=== PATIENT | male | born 1970 | race Caucasian/White ===

== ENCOUNTER → 2017-05-09 | Outpatient (CLI) | payer OTHER ==
[~2017-05-09] MED LIST: HYDROCODONE BIT1 T11 PO; IBU800 M1 PO; METFORMIN HYDR500 M1 PO; MOTRIN800 MG PO; PEN-VEE K500 MG PO; ZOFRAN ODT4 MG SL
== END | disposition home or self-care (01) ==
LOC: RAD 08:10
DX: R06.01 Orthopnea (principal); R09.81 Nasal congestion; I10 Essential (primary) hypertension; E11.9 Type 2 diabetes mellitus without complications; Z87.891 Personal history of nicotine dependence

== ENCOUNTER 2018-12-31 00:26 | Emergency (ER) | payer BC ==
[~2018-12-31] VITALS: Ht 167.6 cm; Wt 88.5 kg
[~2018-12-31 00:26] MED LIST changes: +COZAAR50 M1 PO; +GLUCOPHAGE500 MG PO; +HUMALOG100 UNIT/2 SQ; +LEVEMIR100 UNIT/1 SC; +LIPITOR20 MG PO; +MECLIZINE HYD12.5 MG PO; -METFORMIN HYDR500 M1 PO
[2018-12-31] MEDS ORDERED: CEPHALEXIN500 M1 PO (01:37)
== END 2018-12-31 01:57 | disposition home or self-care (01) ==
LOC: ED 00:26
DX: S52.501A Unspecified fracture of the lower end of right radius, initial encounter for closed fracture (principal); Z79.899 Other long term (current) drug therapy; Z87.891 Personal history of nicotine dependence; W22.8XXA Striking against or struck by other objects, initial encounter; Y93.89 Activity, other specified; Y92.814 Boat as the place of occurrence of the external cause; Y99.8 Other external cause status

== ENCOUNTER → 2020-08-01 | Outpatient (CLI) | payer SELFPAY ==
[~2020-08-01] MED LIST changes: +CEPHALEXIN500 M1 PO
== END | disposition home or self-care (01) ==
LOC: COVID19 10:41
PROVIDERS: ATTEND Family Medicine
DX: Z20.822 Contact with and (suspected) exposure to COVID-19 (principal)

== ENCOUNTER 2021-04-30 00:06 | Emergency (ER) | payer BC ==
[2021-04-30 01:21] LABS: BASO # 0.1 10*3/uL (0.0-0.1); BASO % 0.8 % (0.0-1.0); EOS # 0.2 10*3/uL (0.0-0.4); EOS % 1.6 % (1.0-4.0); HEMATOCRIT 38.7 % (42.0-52.0); LYMPH # 2.2 10*3/uL (1.3-4.4); LYMPH % 19.2 % (27.0-41.0); MEAN CELL VOLUME 81.6 fl (80.0-94.0); MEAN CORPUSCULAR HGB 29.5 pg (27.0-31.0); MEAN CORPUSCULAR HGB CONC 36.2 g/dl (33.0-37.0); MEAN PLATELET VOLUME 11.5 fl (9.6-12.3); MONO # 0.8 10*3/uL (0.1-1.0); MONO % 6.6 % (3.0-9.0); NEUT # 8.1 10*3/uL (2.3-7.9); NEUT % 71.1 % (47.0-73.0); PLATELET COUNT AUTOMATED 260 10*3/uL (130-400); RED BLOOD COUNT 4.74 10*6/uL (4.50-5.90); RED CELL DISTRI WIDTH 11.6 % (0-14.5); WHITE BLOOD COUNT 11.4 10*3/uL (4.8-10.8)
[2021-04-30 01:36] LABS: ALBUMIN 4.2 gm/dl (3.1-4.5); CREATININE 2.03 mg/dL (0.70-1.30); POTASSIUM 4.2 mmol/L (3.5-5.1); TOTAL PROTEIN 8.5 gm/dL (6.4-8.2)
[2021-04-30 03:18] LABS: BILIRUBIN Negative (Negative); BLOOD Negative (Negative); CLARITY Clear (Clear); COLOR Yellow (Yellow); GLUCOSE 3+ (Negative); KETONE Negative (Negative); LEUKO ESTERASE Negative (Negative); NITRITE Negative (Negative); SPECIFIC GRAVITY 1.015 (1.001-1.030); UROBILINOGEN 0.2 E.U./dl (0.0-1.0)
[2021-04-30 04:50] LABS: CREATININE 1.88 mg/dL (0.70-1.30); POTASSIUM 4.2 mmol/L (3.5-5.1)
== END 2021-04-30 05:33 | disposition short-term general hospital (02) ==
LOC: ED 00:06
PROVIDERS: Emergency Medicine
DX: N17.9 Acute kidney failure, unspecified (principal); Z20.822 Contact with and (suspected) exposure to COVID-19; R33.9 Retention of urine, unspecified; B34.9 Viral infection, unspecified; R35.0 Frequency of micturition; Z79.2 Long term (current) use of antibiotics; Z79.899 Other long term (current) drug therapy; Z90.89 Acquired absence of other organs; Z87.891 Personal history of nicotine dependence

== ENCOUNTER → 2024-07-03 | Outpatient (CLI) | payer BC | END | disposition home or self-care (01) | LOC: CT 12:51 | PROVIDERS: ATTEND Family Medicine | DX: Z12.2 Encounter for screening for malignant neoplasm of respiratory organs (principal); F17.211 Nicotine dependence, cigarettes, in remission; I25.10 Atherosclerotic heart disease of native coronary artery without angina pectoris; J84.10 Pulmonary fibrosis, unspecified ==

== ENCOUNTER → 2024-08-25 | Outpatient (CLI) | payer BC ==
[2024-08-25 14:35] LABS: BASO # 0.1 10*3/uL (0.0-0.1); BASO % 0.7 % (0.0-1.0); EOS # 0.1 10*3/uL (0.0-0.4); EOS % 1.4 % (1.0-4.0); HEMATOCRIT 44.3 % (42.0-52.0); MEAN CELL VOLUME 84.2 fl (80.0-94.0); MEAN CORPUSCULAR HGB 28.5 pg (27.0-31.0); MEAN CORPUSCULAR HGB CONC 33.9 g/dl (33.0-37.0); MEAN PLATELET VOLUME 10.7 fl (9.6-12.3); MONO # 0.4 10*3/uL (0.1-1.0); MONO % 5.7 % (3.0-9.0); NEUT # 4.8 10*3/uL (2.3-7.9); PLATELET COUNT AUTOMATED 199 10*3/uL (130-400); RED BLOOD COUNT 5.26 10*6/uL (4.50-5.90); RED CELL DISTRI WIDTH 11.7 % (0-14.5)
[2024-08-25 15:40] LABS: ALKALINE PHOSPHATASE 99 U/L (46-116); BUN 15 mg/dl (9-23); CHLORIDE 100 mmol/L (98-107); POTASSIUM 3.8 mmol/L (3.4-5.1); SGPT/ALT 29 U/L (5-49); TOTAL PROTEIN 6.6 gm/dL (6.0-8.0)
== END | disposition home or self-care (01) ==
LOC: US 14:18
PROVIDERS: ATTEND Urology
DX: D40.0 Neoplasm of uncertain behavior of prostate (principal); N28.1 Cyst of kidney, acquired; N13.30 Unspecified hydronephrosis; R53.83 Other fatigue; N28.89 Other specified disorders of kidney and ureter; N40.0 Benign prostatic hyperplasia without lower urinary tract symptoms

== ENCOUNTER → 2024-09-18 | Outpatient (CLI) | payer BC | END | disposition home or self-care (01) | LOC: CT 00:45 | PROVIDERS: ATTEND Urology | DX: N13.2 Hydronephrosis with renal and ureteral calculous obstruction (principal); K42.9 Umbilical hernia without obstruction or gangrene; M47.816 Spondylosis without myelopathy or radiculopathy, lumbar region ==